=== PATIENT | male | born 1975 | race Caucasian/White ===

== ENCOUNTER 2021-10-29 14:49 | Outpatient (CLI) | payer BC, SELFPAY ==
--- NOTE | 2021-10-29 15:03 | XR_ITS ---
WS: [id number] Left knee, 3 views, 10/29/2021 Clinical Data: LEFT KNEE DDD/PAIN/INSTABILITY Comparison: None. Findings: There is narrowing of the medial and lateral joint spaces with spurring of the medial and lateral fem oral condyles. There is spurring of the posterior patella. No fractures or dislocations are seen. The soft tissues a re normal. XR/XR knee LT 3V* [id number] Impression: Moderate osteoarthritis of the left knee. Kellgren-Efren Classification: grade 3 (moderate): moderate multiple osteoph ytes, definite narrowing of joint space and some sclerosis and possible deformi ty of bone ends
== END 2021-10-29 14:50 | disposition home or self-care (01) ==
PROVIDERS: Visit Provider Nurse Practitioner Family
DX: M25.362 Other instability, left knee (principal); M17.12 Unilateral primary osteoarthritis, left knee
CPT/HCPCS: 73562

== ENCOUNTER → 2022-01-18 08:52 | Outpatient (BNVA) | payer BC, SELFPAY | PROVIDERS: Referring Provider Nurse Practitioner Family; Visit Provider Specialist | DX: M25.562 Pain in left knee (principal) | CPT/HCPCS: 73560; 73565 ==

== ENCOUNTER 2022-03-16 07:36 | Outpatient (CLI) | payer BC, SELFPAY ==
--- NOTE | 2022-03-16 08:00 | MR_ITS ---
WS: [id number] MRI LEFT KNEE NONCONTRAST TECHNIQUE: Axial PD, coronal PD fat sat, coronal PD, sagittal PD, and sagittal PD fat-sat images obta ined. CLINICAL INFORMATION: pain COMPARISON: None. FINDINGS: Disc quadriceps and patella tendons are intact. Hypertrophic patella. Moderate suprapatellar effusion . ACL is not visualized. No normal ACL fibers. Normal PCL. Advanced tricompartmental arthritis. Compl ete loss of the medial and lateral joint compartments. Diffuse chronic thinning of the medial and lat eral meniscus versus prior meniscectomy. [id number]-fn-dliy articulation in the medial and lateral joint co mpartments with subchondral cystic change. 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 Hypertrophic changes along the joint line. Grade III chondromalacia patella. MCL and LCL appear intac t. Normal popliteal fossa. MR/MR knee LT wo con* [id number] IMPRESSION: 1. High-grade chronic appearing tear of the ACL. No normal ACL fibers visualiz ed. 2. Normal PCL. 3. Advanced tricompartmental arthritis with joint space narrowing involving th e medial and lateral joint compartments with [id number] articulation and subc hondral edema. Hypertrophic changes along the joint line. 4. Grade 3 chondromalacia patella. 5. Moderate suprapatellar effusion. Outbridge grading: grade IV: full-thickness cartilage loss with underlying bone reactive changes
== END 2022-03-16 07:37 | disposition home or self-care (01) ==
LOC: RAD 07:37
PROVIDERS: Visit Provider Specialist
DX: M22.42 Chondromalacia patellae, left knee (principal); M25.462 Effusion, left knee; M13.862 Other specified arthritis, left knee; S83.512A Sprain of anterior cruciate ligament of left knee, initial encounter; X58.XXXA Exposure to other specified factors, initial encounter
CPT/HCPCS: 73721

== ENCOUNTER → 2024-01-06 10:30 | Outpatient (BNVA) | payer OTHER, SELFPAY | PROVIDERS: Visit Provider Specialist | DX: M17.12 Unilateral primary osteoarthritis, left knee (principal); Z71.89 Other specified counseling | CPT/HCPCS: 20610; J1100; J2795; J3301 ==

== ENCOUNTER → 2024-04-27 09:49 | Outpatient (BNVA) | payer OTHER, SELFPAY | PROVIDERS: Visit Provider Specialist | DX: M17.12 Unilateral primary osteoarthritis, left knee (principal) | CPT/HCPCS: 20610; J7318 ==

== ENCOUNTER → 2024-11-02 08:23 | Outpatient (BNVA) | payer OTHER, SELFPAY | PROVIDERS: Visit Provider Specialist | DX: M17.0 Bilateral primary osteoarthritis of knee (principal) | CPT/HCPCS: 20610; J7318 ==

== ENCOUNTER → 2025-01-16 14:10 | Outpatient (BNVA) | payer OTHER, SELFPAY | PROVIDERS: Visit Provider Nurse Practitioner Family | DX: L57.8 Other skin changes due to chronic exposure to nonionizing radiation (principal); L81.4 Other melanin hyperpigmentation; D18.01 Hemangioma of skin and subcutaneous tissue; L57.0 Actinic keratosis | CPT/HCPCS: 17000; 99203 ==

== ENCOUNTER → 2025-02-01 08:34 | Outpatient (BNVA) | payer OTHER, SELFPAY | PROVIDERS: PCP Nurse Practitioner Family; Visit Provider Specialist | DX: M17.12 Unilateral primary osteoarthritis, left knee (principal) | CPT/HCPCS: 20610; J1100; J2795; J3301; J9999 ==

== ENCOUNTER → 2025-05-08 14:50 | Outpatient (BNVA) | payer OTHER, SELFPAY | PROVIDERS: PCP Nurse Practitioner Family; Visit Provider Specialist | DX: M17.12 Unilateral primary osteoarthritis, left knee (principal) | CPT/HCPCS: 20610; J7318 ==